=== PATIENT | female | born 1950 | race Caucasian/White ===

== ENCOUNTER 2016-06-21 16:15 | Observation (INO) | payer OTHER ==
--- NOTE | 2016-06-21 18:06 | EDPHY ---
H & P Stated Complaint: Sent By for PEs Time Seen by Provider: 06/21/16 16:58 HPI/ROS: Chief complaint: Pulmonary embolism History of present illness: This is a pleasant 66-year-old female who presents to the emergency department for admission after being diagnosed with pulmonary embolisms today. Patient is our primary care doctor today as she has had persistent shortness of breath for the last 2 weeks. Shortness of breath is particularly exacerbated by exertion. Patient was worked up on an outpatient basis and CT scan revealed bilateral pulmonary embolisms. On my evaluation patient states she is feeling well without specific complaint. She does have a history of previous pulmonary embolisms. Review of systems: A 10 point review of systems was obtained and other than described above was negative - Personal History Current Tetanus/Diphtheria Vaccine: Yes Current Tetanus Diphtheria and Acellular Pertussis (TDAP): Yes - Medical/Surgical History Hx Asthma: No Hx Chronic Respiratory Disease: No Hx Diabetes: No Hx Cardiac Disease: No Hx Renal Disease: No Hx Cirrhosis: No Hx Alcoholism: No Hx HIV/AIDS: No Hx Splenectomy or Spleen Trauma: Yes Other PMH: ITP, PEs 2000, splenectomy - Social History Smoking Status: Never smoked - Physical Exam Exam: General Appearance: Alert, no distress. Eyes: Pupils equal and round no pallor or injection. ENT, Mouth: Mucous membranes moist. Respiratory: There are no retractions, lungs are clear to auscultation. Cardiovascular: Regular rate and rhythm. Gastrointestinal: Abdomen is soft and non tender, no masses, bowel sounds normal. Neurological: Alert and oriented. Strength and sensation intact and symmetrical. Skin: Warm and dry, no rashes. Musculoskeletal: Neck is supple non tender. Extremities are symmetrical, full range of motion. Psychiatric: Patient is oriented X 3, there is no agitation. Constitutional: Initial Vital Signs Temperature (C) 36.9 C 06/21/16 16:20 Heart Rate 62 06/21/16 16:20 Respiratory Rate 14 06/21/16 16:20 Blood Pressure 185/98 H 06/21/16 16:20 O2 Sat (%) 89 L 06/21/16 16:20 O2 Delivery Mode Room Air Allergies/Adverse Reactions: sulfamethoxazole [From Bactrim] Allergy (Verified 06/21/16 16:20) trimethoprim [From Bactrim] Allergy (Verified 06/21/16 16:20) Home Medications: Medication Instructions Recorded NO HOME MEDICATIONS 06/09/11 Medical Decision Making - Diagnostics Imaging: CTA of the chest from earlier today is reviewed, it does reveal bilateral pulmonary embolisms, pulmonary hypertension. Please see report for complete details ED Course/Re-evaluation: Patient seen under the supervision of my secondary supervising physician Dr. Norris Murillo. Patient presents to the emergency department after being diagnosed on outpatient basis with pulmonary embolisms. Patient is admitted to the hospitalist service, Dr. Mayra Muñoz. Baseline laboratory studies are ordered. She will be started on Lovenox. The plan has been discussed with the patient. Departure - Departure Disposition: [facility] Inpatient Acute Clinical Impression: Pulmonary embolism Qualifiers: Pulmonary embolism type: other Chronicity: acute Acute cor pulmonale presence: without acute cor pulmonale Qualifier Code: (I26.99) Other pulmonary embolism without acute cor pulmonale Condition: Good
--- NOTE | 2016-06-21 18:07 | CPEKG ---
Heart Rate: 67 RR Interval: 896 P-R Interval: 248 QRSD Interval: 78 QT Interval: 428 QTC Interval: 452 P Bend: -3 QRS Bend: -26 T Wave Bend: -41 EKG Severity - ABNORMAL ECG - EKG Impression: SINUS RHYTHM EKG Impression: FIRST DEGREE AV BLOCK EKG Impression: BORDERLINE LEFT AXIS DEVIATION EKG Impression: ABNORMAL T, CONSIDER ISCHEMIA, DIFFUSE LEADS Electronically Signed By: Chad May 21-Jun-2016 20:36:53
[2016-06-21 18:09] LABS: ANION GAP 12 mEq/L (8-16); CALCIUM 9.2 mg/dL (8.5-10.4); CARBON DIOXIDE 25 mEq/l (22-31); CHLORIDE 106 mEq/L (97-110); CREATININE 0.7 mg/dL (0.6-1.0); GLOMERULAR FILTRATION RATE > 60; GLUCOSE 88 mg/dL (70-100); SODIUM 143 mEq/L (134-144)
[2016-06-21 18:11] LABS: APTT 27.5 SEC (23.0-38.0); INR 1.03 (0.83-1.16); PROTIME(PATIENT) 13.4 SEC (12.0-15.0)
[2016-06-21] MEDS ORDERED: ENOXAPARIN 80 MG/0.8 ML SYR SC ONE (18:25)
[2016-06-21] MEDS ORDERED: ONDANSETRON 4 MG/2 ML VIAL IVP PRN (20:36)
[2016-06-21] MEDS ORDERED: ACETAMINOPHEN 325 MG TAB PO PRN (20:36)
--- NOTE | 2016-06-21 21:33 | GHP ---
[f rep st] HISTORY AND PHYSICAL DATE OF ADMISSION: 06/21/2016 CHIEF COMPLAINT: Shortness of breath. HISTORY: The patient is a 66-year-old female who did have a distant pulmonary embolus who now presen ts from her primary care office after being diagnosed with an acute PE as an outpatient. She present ed to Primary Care complaining of 2 weeks of shortness of breath. She noticed this mostly going up s tairs where she became very dyspneic on exertion. There has been no chest pain. She denies any lowe r extremity edema. There have been no recent risk factors for developing a pulmonary embolus. She i s currently quite comfortable without complaint. PAST MEDICAL HISTORY: 1. Pulmonary embolus in 2000. 2. ITP status post splenectomy. MEDICATIONS: Please see computer record for full detailed list. ALLERGIES: Bactrim. SOCIAL HISTORY: No smoking. Occasional alcohol. She lives with her . REVIEW OF SYSTEMS: Complete review of systems obtained. Review of systems is negative for constitu tional, HEENT, GI, pulmonary, cardiovascular, , hematology, musculoskeletal, endocrine, psych excep t for positives and negatives as in HPI. FAMILY HISTORY: Negative for pulmonary embolus. PHYSICAL EXAMINATION: GENERAL: Well-developed, well-nourished female in no acute distress. VITAL S IGNS: Temperature is 36.9, pulse 68, blood pressure 162/101, saturating 89% on room air. EYES: Nor mal conjunctiva. Pupils equal and react to light. ENT: Normal ears and nose. Hearing intact. Nor mal teeth. Oropharynx moist. NECK: Trachea midline. No thyromegaly. CHEST: Normal effort. LUNG S: Clear to auscultation bilaterally. CARDIOVASCULAR: Regular rhythm. No murmur. No lower extrem ity edema. ABDOMEN: Soft, nontender. No hepatosplenomegaly. SKIN: Warm, dry, intact. No rash. MUSCULOSKELETAL: No cyanosis or clubbing. Strength 5/5 upper and lower extremities. NEUROLOGIC: C ranial nerves intact. Normal sensation to light touch. PSYCH ASSESSMENT: Alert and oriented x3. N ormal mood and affect. Normal judgment. Normal memory. LABS: White count 7.88, hematocrit 45, platelets 369. Sodium 143, potassium 4.0, chloride 106, bica rb 25, BUN 12, creatinine 0.7, glucose 88. Troponins negative. EKG viewed by me. My personal interpretation is normal sinus rhythm. Pretty significant inferior an d anterior T-wave inversions. CT angiogram of the chest shows bilateral pulmonary embolus right greater than the left with evidence of pulmonary hypertension. ASSESSMENT/PLAN: Acute pulmonary embolus. Clinically she looks quite stable, but I am concerned abo ut the evidence of pulmonary hypertension on her CAT scan. She also has significant EKG changes. We will check an echocardiogram to evaluate for right heart strain. Continue subcutaneous Lovenox, alt yumi she can likely be switched to an oral agent at hospital discharge. Recommended outpatient stu tology consultation for hypercoagulable workup. EKG changes. Will follow troponins serially. I wonder whether these EKG changes may all be due to s train from her pulmonary embolus. There are significant, however, and a workup for ischemia with car diac stress test can be done at some time in the future. ITP status post splenectomy. Platelets are now normalized. CODE STATUS: Full. ADMISSION STATUS: Will admit to observation as depending on risk stratification and hospital course will determine length of hospitalization need. DVT PROPHYLAXIS: Treatment for acute PE as discussed above. /[id number]/MODL
--- NOTE | 2016-06-21 22:12 | US ---
Bilateral Lower Extremity Venous Duplex Doppler Studies Clinical Indications: 66-year-old female with shortness of breath since June 09, 2016, although w as noted to have a positive PE on a CT scan earlier today. Rule out DVT. Technique: A high-frequency transducer was used for compression imaging and Doppler study of the flakita p veins of both legs from the upper calves to the groins. Pulsed Doppler and color Doppler were utili zed, along with various maneuvers to assess flow in the deep veins. Comparison Study: None. Findings: Right Leg: The deep veins of the groin, thigh, knee, and upper calf are well-displayed, and are norm ally compressible. Doppler flow patterns are unremarkable. There is no evidence of deep venous thro mbosis. Left Leg: The deep veins of the groin, thigh, knee, and upper calf are well-displayed, and are gregory lly compressible. Doppler flow patterns are unremarkable. There is no evidence of deep venous throm bosis. There is normal compression of the greater saphenous veins, without superficial thrombosis. The popli teal fossa on each side is normal. Impression: Normal bilateral lower extremity venous Doppler studies.
--- NOTE | 2016-06-22 05:57 | CPEKG ---
Heart Rate: 56 RR Interval: 1071 P-R Interval: 244 QRSD Interval: 78 QT Interval: 456 QTC Interval: 441 P [place]: 37 QRS [place]: 8 T Wave [place]: 2 EKG Severity - ABNORMAL ECG - EKG Impression: SINUS RHYTHM EKG Impression: FIRST DEGREE AV BLOCK EKG Impression: CONSIDER LEFT VENTRICULAR HYPERTROPHY Electronically Signed By: Garett Anand 23-Jun-2016 10:47:43
[2016-06-22 06:47] LABS: % IMMATURE GRANULYOCYTES 0.3 % (0.0-1.1); ABSOLUTE IMMATURE GRANULOCYTES 0.02 10^3/uL (0.00-0.10); ADD DIFF? NO; ADD MORPH? NO; ADD SCAN? NO; ATYPICAL LYMPHOCYTE FLAG 20 (0-99); FRAGMENT RBC FLAG 0 (0-99); HEMATOCRIT 41.2 % (38.0-47.0); HEMOGLOBIN 13.9 g/dL (12.6-16.3); LEFT SHIFT FLG 0 (0-99); LIPEMIA HEMOLYSIS FLAG 80 (0-99); MEAN CELL HEMOGLOBIN CONCENTR. 33.7 g/dL (32.4-36.7); PLATELET CLUMPS FLAG 0 (0-99); PLATELET COUNT 341 10^3/uL (150-400); RED BLOOD CELL COUNT 4.63 10^6/uL (4.18-5.33); RED CELL DISTRIBUTION WIDTH 13.4 % (11.5-15.2)
[2016-06-22 06:55] LABS: ANION GAP 7 mEq/L (8-16); CALCIUM 8.5 mg/dL (8.5-10.4); CARBON DIOXIDE 28 mEq/l (22-31); CHLORIDE 109 mEq/L (97-110); CREATININE 0.8 mg/dL (0.6-1.0); GLOMERULAR FILTRATION RATE > 60; GLUCOSE 88 mg/dL (70-100); SODIUM 144 mEq/L (134-144)
[2016-06-22 07:06] LABS: TROPONIN I 0.015 ng/mL (0-0.034)
[2016-06-22] MEDS ORDERED: ENOXAPARIN 80 MG/0.8 ML SYR SC SCH (09:00)
[2016-06-22 11:38] VITALS: BP 140/93; PULSE 57; RESP 17; TEMP 97.9; O2SAT 94
--- NOTE | 2016-06-22 14:11 | ECHO ---
[id number] + + [id number] : : [place] [id number] : : [phone] + + Adult Echocardiographic Report + -----+ :Name: MARCY ADKINS PStudy Date: 06/22/2016 12:19 PM : : Hospital Admission Number: [id number] Location : 201: :: 1950 Gender: Female Height: 69 in : :Age: 66 yrs Race: WH Weight: 153 lb : :Reason For Study: CHF : : BSA: 1.8 meters2 : :History: Bilateral pulmonary embolism : + -----+ MMode/2D Measurements & Calculations IVSd: 1.1 cm RVDd: 3.1 cm FS: 28.4 % Ao root diam: LVPWd: 0.88 cm LVIDd: 3.6 cm EDV(Teich): 2.6 cm LVIDs: 2.6 cm 55.8 ml LA dimension: ESV(Teich): 3.0 cm 24.7 ml EF(Teich): 55.7 % LVLd ap4: 9.4 cm SV(MOD-sp4): EDV(MOD-sp4): 104.0 ml 154.0 ml LVLs ap4: 7.2 cm ESV(MOD-sp4): 50.0 ml EF(MOD-sp4): 67.5 % Normal Measurement Values: + + :LVIDd (3.5-5.7cm) IVSd (0.6-1.1cm) LVPWd (0.6-1.1cm) Aortic Root (2.0-3.7cm)Left Atrium (1.5-4.0cm): :LV Vol(d) (76-115ml) LV Vol(s) (29-48ml) Ejec Fraction (50-65%)PV Flynn (0.6- 1.2m/s) TV Flynn (0.4-1.0m/s) : :MV E Flynn (0.8-1.0m/s)MV A Flynn (0.3-1.0m/s)LVOT Flynn (0.7-1.2m/s) Asc Ao Flynn ( 0.9-1.8m/s) : + + Doppler Measurements & Calculations MV E max flynn: Ao V2 max: LV V1 max: PA V2 max: 54.8 cm/sec 109.7 cm/sec 90.3 cm/sec 80.8 cm/sec MV A max flynn: Ao max P.8 mmHg LV V1 max PG: PA max P.5 cm/sec 3.3 mmHg 2.6 mmHg MV E/A: 0.70 MV dec time: 0.30 sec RAP systole: 10.0 mmHg Left Ventricle The left ventricle is normal in size and function. There is normal left ventricular wall thickness. Ejection Fraction = 60-65%. There is Doppler evidence for diastolic dysfunction. No regional wall motion abnormalities noted. Right Ventricle The right ventricle is normal in size and function. Atria The left atrial size is normal. Right atrial size is normal. A dilated inferior vena cava suggests increased right atrial pressure. Mitral Valve The mitral valve leaflets appear thickened, but open well. There is no mitral valve stenosis. There is mild mitral regurgitation. Tricuspid Valve The tricuspid valve is normal in structure and function. There is no tricuspid stenosis. There is trace tricuspid regurgitation. Unable to estimate right heart pressures due to inadequate TR jet. Aortic Valve The aortic valve is trileaflet. There is no aortic stenosis. There is no aortic insufficiency. Pulmonic Valve The pulmonic valve is not well visualized. Trace pulmonic valvular regurgitation. Great Vessels The aortic root is normal size. Pericardium/Pleural Small pericardial effusion. Conclusion A two-dimensional transthoracic echocardiogram, with color flow Doppler was performed. The left ventricle is normal in size and function. Ejection Fraction = 60-65%. There is Doppler evidence for diastolic dysfunction. Normal appearing vavlular structures. There is mild mitral regurgitation. There is trace tricuspid regurgitation. Unable to estimate right heart pressures due to inadequate TR jet. Trace pulmonic valvular regurgitation. A dilated inferior vena cava suggests increased right atrial pressure. Small pericardial effusion without evidence for tamponade. Final Reading Physician: Sara Allen signed on 06/22/2016 02:10 PM Ordering Physician: Mayra Muñoz Performed By: Georgie Mccauley
[2016-06-22] MEDS ORDERED: WARFARIN SODIUM 7.5 MG TAB PO ONE (14:26)
--- NOTE | 2016-06-22 15:20 | GDS ---
[f rep st] DISCHARGE SUMMARY CHIEF COMPLAINT: Pulmonary embolism. HISTORY OF PRESENT ILLNESS: A 66-year-old female with a history of a previous pulmonary embolism 15 years ago. She presented to her primary care office with the complaint of dyspnea on exertion. Outp atient CAT scan revealed pulmonary embolism and she was sent to the emergency department. HOSPITAL COURSE: Patient was treated with Lovenox. Her vital signs were completely stable with no t achycardia and no hypoxia. She is feeling well. She had an echocardiogram which did not show any tr icuspid regurgitation, but it was difficult to ascertain if there was any pulmonary hypertension. Ho wever, there was no evidence of right heart failure. At this point, it is reasonable for her to be t reated outpatient. She will be continued on Lovenox at 1.5 mg/kg nightly and warfarin. She is to fo llow up with her primary care doctor next week for PT/INR. DISPOSITION: Home. DISCHARGE MEDICATIONS: She is to resume her home medicines. In addition, she will be on Lovenox at 100 mg nightly and warfarin 5 mg daily. FOLLOWUP INSTRUCTIONS: She is to follow up with her primary care doctor in the next week for a PT/IN R. TIME SPENT: Greater than 30 minutes was spent on discharge. /[id number]/MODL
== END 2016-06-22 15:54 | disposition home or self-care (01) ==
LOC: INTOOBSV 17:33 → F2W 18:45
PROVIDERS: ADMIT Internal Medicine; ATTEND Internal Medicine
DX: I26.99 Other pulmonary embolism without acute cor pulmonale (principal)
CPT/HCPCS: 93005; 93306; 93970; 96372; 99285; G0378; J1650

== ENCOUNTER → 2016-06-21 | Outpatient (CLI) | payer OTHER ==
--- NOTE | 2016-06-21 11:44 | DX ---
PA lateral chest x-ray 1046 hours History: Cough with shortness of breath. Findings: Heart size appears be normal. There is rounded mass suspected about the right hilum the cou ld represent lymphadenopathy measuring about 4.3 cm. No additional possible masses are seen within th e chest. Nipple shadow is suspected at the right lung base. There is no consolidation, effusion, or p neumothorax. Moderate dextroscoliosis is noted mid thoracic spine. Impression: 1. 4.3 cm right hilar mass suspected. Consider CT chest with contrast for further characterization. These findings were discussed by telephone with Dr. Josefina Thomson at 1140 hours. There is also clini erin concern for pulmonary embolus. When CT is performed this could be a CT PE study.
== END ==
LOC: BMCIMAGING 10:41
PROVIDERS: ATTEND Family Medicine
DX: R05 Cough (principal); R06.02 Shortness of breath

== ENCOUNTER → 2016-06-21 | Outpatient (CLI) | payer OTHER ==
[~2016-06-21] MED LIST: IOPAMIDOL (ISOVUE 370) 100 ML BTL IV ONE
--- NOTE | 2016-06-21 15:43 | CT ---
CT Pulmonary Angiogram Clinical Indications: Cough, shortness of breath, abnormal chest radiograph showing a possible right hilar mass. Technique: Thinly collimated multidetector helical CT imaging was performed through the chest while 90 mL Isovue-370 were injected intravenously without complication. The images were then transferred to an independent workstation where multiplanar and three-dimensional reconstructions were performed by me and reviewed at multiple windows. Dose reduction techniques were utilized. Findings Chest: Lungs are free of infiltrate, and no masses are found. No pleural effusion. The spleen is abs ent. A couple of round nodules are found under the diaphragm, one measuring 1.6 cm and one measuring 1.7 cm maximum diameters, compatible with splenules. A 2.2 cm rounded well-defined water density in t he lateral aspect of the anterior segment of the right lobe of the liver is compatible with a cyst. N odules are suspected in mildly enlarged right lobe of the thyroid gland, obscured by artifact from lamar bclavian venous contrast. The left pectoralis major muscle has a masslike nodular exterior margin peter r the left axilla. This could represent posttraumatic deformity or tumor. ( Previous severe trauma co uld explain both the absent spleen and this muscular deformity.) Thoracolumbar scoliosis is mild to m oderate. CT Pulmonary Angiogram: Multiple filling defects are found within pulmonary arteries. On the right s keanu, a large laminated thrombus takes up a third of the lumen of the right pulmonary artery and exten ds into upper lobe and lower lobe branches. On the left, small defects are scattered in pulmonary art erial branches. Enlargement of main pulmonary artery and lobar pulmonary arteries is accompanied by d ilation of right atrium and right ventricle, with some reflux of contrast down the inferior vena cava . Bovine arch anomaly of the thoracic aortic arch is a common normal variant. No aneurysm and no diss ection of the aorta. Impressions 1. Bilateral pulmonary embolism, right greater than left. 2. Pulmonary arterial hypertension. 3. Negative for hilar neoplasm. 4. Abnormal left pectoralis major muscle, possibly posttraumatic. 5. 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 I discussed results with Dr. Josefina Thomson at [address] Aldo Tapia
== END ==
LOC: FIMAGING 13:55
PROVIDERS: ATTEND Family Medicine
DX: I26.99 Other pulmonary embolism without acute cor pulmonale (principal); I27.2 Other secondary pulmonary hypertension; M62.9 Disorder of muscle, unspecified; Z90.81 Acquired absence of spleen
CPT/HCPCS: 71275; Q9967

== ENCOUNTER → 2016-06-26 | Outpatient (CLI) | payer OTHER ==
--- NOTE | 2016-06-26 15:02 | US ---
Ultrasound left chest wall History: Possible left pectoral mass on prior CT imaging. Comparison to prior CT study of June 21, 2016 Findings: Ultrasound of the left chest wall toward the left axilla demonstrates normal appearance of the pectoralis muscle without evidence of mass. No lymphadenopathy is seen. The lobulated contour of the left pectoralis muscle on CT exam was probably positional. Impression: Normal ultrasound left upper chest as detailed above. No underlying mass or lymphadenopat hy.
--- NOTE | 2016-06-26 15:43 | US ---
History: Nodule associated with the thyroid on recent CT study. History pulmonary embolus. Findings: Right lobe thyroid: Within the mid to lower pole right lobe of the thyroid there is a complex predomi nately solid mass with some cystic components and internal color flow enhancement. This mass measures 24 x 16 x 15 mm. No additional nodules are seen on the right. The right lobe of the thyroid in total measures 5 x 1.7 x 2.5 cm in longitudinal, transverse, and AP dimensions. Left lobe thyroid: There are 3 similar benign-appearing mixed echogenicity nodules within the left lo be of the thyroid as follows: Upper pole, mixed echogenicity predominately isoechoic nodule, 7.8 x 5.6 x 4.1 mm Lower pole left lobe thyroid, similar appearing nodule, 3.7 x 3.3 x 4.7 mm Midportion left lobe near the isthmus, predominately cystic benign-appearing nodule probably represen ting small colloid cyst, 5 x 3.7 x 2.5 mm. The left lobe of the thyroid in total measures 4.7 x 1.2 x 0.9 cm. There are mildly thickened nodes that correspond to level 2 nodes within the upper neck on the left w ith prominent node measuring about 1.8 x 1 cm as well as level 3 node inferiorly measuring 1.8 x 0.7 cm. The patient reports recent upper respiratory infection. Impression: 1. Dominant mixed echogenicity predominantly solid mass with some cystic components with internal col or flow enhancement mid to lower right lobe of the thyroid. Considering the size and heterogeneous ec hotexture, fine-needle aspiration can be performed for further characterization. If FNA is not perfor med then repeat ultrasound in 6 months may be considered. 2. Small benign-appearing nodules left lobe of the thyroid. 3. Mildly prominent level 2 and level 3 lymph nodes along the left side of the neck. These could be r eactive secondary to recent upper respiratory infection. Clinical correlation recommended.
== END ==
LOC: BMCIMAGING 12:36
PROVIDERS: ATTEND Family Medicine
DX: E04.2 Nontoxic multinodular goiter (principal)
CPT/HCPCS: 76536-PO

== ENCOUNTER → 2016-07-03 | Outpatient (CLI) | payer OTHER ==
[~2016-07-03] MED LIST changes: +BUPIVACAINE 0.25% 30 ML SDV ONE; -IOPAMIDOL (ISOVUE 370) 100 ML BTL IV ONE; +LIDOCAINE 1% 30 ML SDV ONE; +NA BICARBONATE 50 MEQ/50 ML VIAL ONE
--- NOTE | 2016-07-03 11:38 | US ---
Ultrasound-Guided Thyroid Biopsy History: Right thyroid nodule. Crosscutting Measure #226: Current tobacco user: No. Comparison: Thyroid ultrasound June 26, 2016. Procedure: Prior to the procedure, a limited ultrasound redemonstrated A dominant right thyroid nodul e. The risks and benefits of the procedure including bleeding, infection, and non diagnosis, were exp lained to the patient and informed written consent was obtained. A time out was performed. An area of skin overlying the thyroid was prepped and draped in the usual sterile fashion. Using buffered lidoc che for local anesthesia, a 25-gauge needle was advanced into the thyroid nodule under direct ultras ound visualization using sterile gel and a sterile probe cover. Seven fine needle passes were made an d given to pathology. A bandage was applied. The patient tolerated the procedure well with no immedi ate complications. Impression: Ultrasound-guided thyroid biopsy as above.
== END ==
LOC: FIMAGING 09:54
PROVIDERS: ATTEND Internal Medicine Endocrinology, Diabetes & Metabolism
PROC: 0GBH3ZX Excision of Right Thyroid Gland Lobe, Percutaneous Approach, Diagnostic (ICD-10-PCS; principal; 2016-07-03)
DX: E04.2 Nontoxic multinodular goiter (principal)

== ENCOUNTER → 2017-02-06 | Outpatient (CLI) | payer OTHER | LOC: BMCIMAGING 13:12 | PROVIDERS: ATTEND Family Medicine | DX: Z12.31 Encounter for screening mammogram for malignant neoplasm of breast (principal); Z13.820 Encounter for screening for osteoporosis; M85.80 Other specified disorders of bone density and structure, unspecified site | CPT/HCPCS: G0202 ==

== ENCOUNTER → 2017-06-27 | Outpatient (CLI) | payer OTHER | LOC: BMCIMAGING 13:29 | PROVIDERS: ATTEND Internal Medicine Endocrinology, Diabetes & Metabolism | DX: E04.2 Nontoxic multinodular goiter (principal) | CPT/HCPCS: 76536-PO ==

== ENCOUNTER → 2018-02-06 | Outpatient (CLI) | payer OTHER | LOC: BMCIMAGING 08:54 | PROVIDERS: ATTEND Family Medicine | DX: Z12.31 Encounter for screening mammogram for malignant neoplasm of breast (principal) ==